=== PATIENT | male | born 2000 ===

== ENCOUNTER 2020-10-29 14:46 | Emergency (ER) ==
[2020-10-29] MEDS ORDERED: diphenhydrAMINE 50 MG/ML VIAL ONE (14:49)
[2020-10-29] MEDS ORDERED: Albuterol Sulfate 2.5 mg/3 ml Neb ONE (14:49)
[2020-10-29] MEDS ORDERED: Sodium Chloride 0.9% 1,000 ML ONE (14:49)
[2020-10-29] MEDS ORDERED: Famotidine In NaCl 20 mg/50 ml Premix Bag ONE (14:49)
[2020-10-29] MEDS ORDERED: methylPREDNISolone Sod Succ/PF 125 MG/2 ML VIAL ONE (14:59)
== END 2020-10-29 16:20 | disposition home or self-care (01) ==
LOC: MADERS 14:46
DX: T63.441A Toxic effect of venom of bees, accidental (unintentional), initial encounter (principal); R00.0 Tachycardia, unspecified; F17.210 Nicotine dependence, cigarettes, uncomplicated
CPT/HCPCS: 96374; 96375; J1200; J2930; J7050; J7611